=== PATIENT | male | born 1990 | race Caucasian/White ===

== ENCOUNTER 2016-11-26 08:27 | Emergency (ER) | payer SELFPAY ==
[~2016-11-26] VITALS: Ht 170.2 cm; Wt 63.5 kg
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
--- NOTE | 2016-11-26 08:49 | NUR ---
Dr. Banuelos evaluating patient at bedside.
[2016-11-26 08:51] VITALS: BP 138/75
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
[2016-11-26 09:07] VITALS: BP 138/75
--- NOTE | 2016-11-26 09:07 | NUR ---
Patient discharged with v/s stable. Written and verbal after care instructions given and explained. Patient verbalized understanding. Ambulatory with in custody. All questions addressed prior to discharge. Advised to follow up with PMD.
== END 2016-11-26 09:07 ==
LOC: MED 08:33
DX: Z02.89 Encounter for other administrative examinations (principal); Z04.1 Encounter for examination and observation following transport accident